=== PATIENT | female | born 1975 | race Caucasian/White ===

== ENCOUNTER 2022-04-10 23:36 | Emergency (ER) | payer OTHER, SELFPAY ==
[2022-04-10 23:56] VITALS: BP 119/74; PULSE 98; RESP 18; TEMP 37.1; O2SAT 100; BMI 32.1
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
--- NOTE | 2022-04-11 01:52 | PC.NURSE ---
pt ambulatory to room, c/o neck pain was told we will be putting a c-collar on. pt states she is not getting a CT scan , im not waiting for it pt daughter at bedside as patient as well. this RN told dtr we will give her ibuprofen, pt scoffed and said that wont do nothing this RN seeked clarification from pt, who refused to respond. aware that pt refusing ct despite c/o neck pain
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
== END 2022-04-11 02:14 | disposition left against medical advice (07) ==
PROVIDERS: Emergency Provider Internal Medicine
DX: S16.1XXA Strain of muscle, fascia and tendon at neck level, initial encounter (principal); V89.2XXA Person injured in unspecified motor-vehicle accident, traffic, initial encounter; Y93.9 Activity, unspecified; Y92.410 Unspecified street and highway as the place of occurrence of the external cause; Y99.9 Unspecified external cause status
CPT/HCPCS: 99282; 99283